=== PATIENT | male | born 1980 | race Two or more races ===

== ENCOUNTER 2020-07-14 08:40 | Outpatient (CLI) | payer OTHER | END 2020-07-14 09:04 | disposition home or self-care (01) | LOC: SONOGRAMA 08:40 | PROVIDERS: ATTEND Pathology Anatomic Pathology & Clinical Pathology | DX: E04.2 Nontoxic multinodular goiter (principal) ==

== ENCOUNTER 2023-04-14 11:13 | Outpatient (CLI) | payer OTHER | END 2023-04-14 11:16 | disposition home or self-care (01) | LOC: SONOGRAMA 11:13 | PROVIDERS: ATTEND Pathology Anatomic Pathology & Clinical Pathology | DX: E04.2 Nontoxic multinodular goiter (principal); D34 Benign neoplasm of thyroid gland ==